=== PATIENT | female | born 2000 | race Caucasian/White ===

== ENCOUNTER 2021-05-12 22:46 | Emergency (ER) | payer OTHER, MEDICAID ==
[~2021-05-12] VITALS: Ht 167.6 cm; Wt 76.2 kg
[2021-05-12 23:10] VITALS: BP_SYST 134
--- NOTE | 2021-05-12 23:37 | NUR ---
Patient to ER bed 3 to gown for evaluation. Side rails up.
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
--- NOTE | 2021-05-12 23:52 | NUR ---
ER Dr. Walker at bedside examining patient.
[2021-05-13] MEDS ORDERED: ACETAMINOPHEN 500 MG TABLET PO ONE
[2021-05-13] MEDS ORDERED: ONDANSETRON 4 MG ODT TAB PO ONE
--- NOTE | 2021-05-13 00:33 | NUR ---
Returned from radiology, back to [facility].
[2021-05-13] MEDS ORDERED: ACET12.55 PO (02:32)
[2021-05-13] MEDS ORDERED: CYCL10TA24 PO (02:32)
[2021-05-13] MEDS ORDERED: NAPR-686 PO (02:32)
[2021-05-13 03:03] VITALS: BP_SYST 134
--- NOTE | 2021-05-13 03:03 | NUR ---
Patient given written and verbal discharge instructions and verbalizes understanding. ER MD discussed with patient the results and treatment provided. Patient in stable condition. ID arm band removed. Rx of Acetaminophen with codeine, Flexeril and Naproxen given. Patient educated on pain management and to follow up with PMD. Pain Scale 1/10. Opportunity for questions provided and answered. Medication side effect fact sheet provided.
== END 2021-05-13 03:03 | disposition home or self-care (01) ==
LOC: SED 22:46
DX: S13.4XXA Sprain of ligaments of cervical spine, initial encounter (principal); S00.83XA Contusion of other part of head, initial encounter; Z88.1 Allergy status to other antibiotic agents; V49.59XA Passenger injured in collision with other motor vehicles in traffic accident, initial encounter; Y93.89 Activity, other specified; Y92.89 Other specified places as the place of occurrence of the external cause; Y99.8 Other external cause status
CPT/HCPCS: 70450; 72125; 76376; 81025; 99284; Q0162